=== PATIENT | male | born 1975 | race Caucasian/White ===

== ENCOUNTER 2018-01-27 05:43 | Inpatient (IN) ==
[2018-01-20 11:28] LABS: Basophils % 0.5 % (0.0-0.8); Eosinophils # 0.3 10*3/uL (0.0-0.87); Eosinophils % 3.4 % (0.00-10.9); Hematocrit 45.1 VOL% (42.0-52.0); Hemoglobin 14.6 GM/DL (14.0-18.0); Immature Granulocytes % 0.4 %; Immature Granulocytes Absolute 0.03 #; Lymphocytes # 1.7 10*3/uL (1.4-4.0); Lymphocytes % 21.3 % (21.2-54.2); Mean Corpuscular HGB Conc 32.4 GM/DL (32-36); Mean Corpuscular Hemoglobin 28 PG (27-34); Mean Corpuscular Volume 84.9 FL (87-102); Mean Platelet Volume 8.7 FL (9.6-12.0); Monocytes # 0.8 10*3/uL (0.11-0.8); Monocytes % 10.5 % (1.7-12.7); Neutrophils # 5.1 10*3/uL (1.4-7.4); Neutrophils % 63.9 % (38.7-73.9); Platelet Count 220 T/CUMM (130-400); Red Blood Count 5.31 MC/CUMM (3.8-5.5); Red Cell Distribution Width 14.5 % (9.3-17.3)
[2018-01-20 11:36] LABS: PT Patient Result 10.3 SECS; Partial Thromboplastin Time 25.2 SECS (0-40)
[2018-01-20 11:48] LABS: Apearance,Urine CLEAR (Clear); Bilirubin,Urine Negative (Negative); Blood, Urine Negative (Negative); Glucose,Urine (UA) Negative (Negative); Ketones,Urine Negative (Negative); Mucus,Urine Occasional /LPF (Occasional); Nitrite,Urine Negative (Negative); Protein,Urine Negative; RBC,Urine <1 /HPF (0-4); Squamous Epithelial Cell,Urine Occasional /HPF (0-10); Urine Color Yellow (Yellow); Urine Specific Gravity 1.017 (1.001-1.035); Urine Urobilinogen < 2.0 EU/DL (0.2-1.0); WBC,Urine <1 /HPF (0-6)
[2018-01-20 12:07] LABS: Calcium 9.3 MG/DL (8.5-10.1); Osmolality,Calculated 276.4 MOS/KG (273-304); Potassium 4.7 MMOL/L (3.5-5.1)
[2018-01-27] MEDS ORDERED: BUPIVACAINE LIPOSOMAL 20 ML/266 MG VIAL INFILTRAT ONE (06:00)
[2018-01-27] MEDS ORDERED: ACETAMINOPHEN INJ 1,000 MG in PREMIX 1 EACH IV ONE (06:00)
[2018-01-27] MEDS ORDERED: CEFUROXIME INJ 1,500 MG in SODIUM CHLORIDE 0.9% 100 ML IV ONE (06:00)
[2018-01-27] MEDS ORDERED: DIAZEPAM 5 MG TABLET ONE (06:29)
[2018-01-27] MEDS ORDERED: DIAZEPAM 5 MG TABLET PO ONE (06:30)
[2018-01-27] MEDS ORDERED: FAMOTIDINE 20 MG TABLET ONE (06:30)
[2018-01-27] MEDS ORDERED: FAMOTIDINE 20 MG TABLET PO ONE (06:30)
[2018-01-27] MEDS: LACTATED RINGERS 1,000 ML IV SCH ×4 (06:50→19:00)
[2018-01-27] MEDS ORDERED: CEFUROXIME 1,500 MG VIAL ONE (07:07)
[2018-01-27] MEDS ORDERED: ACETAMINOPHEN 1,000 MG/100 ML VIAL IV ONE (07:07)
[2018-01-27] MEDS ORDERED: TISSUE ADHESIVE 1 EACH APPLICATOR TOP ONE (07:48)
[2018-01-27] MEDS ORDERED: BUPIVACAINE LIPOSOMAL 20 ML/266 MG VIAL ONE (07:48)
[2018-01-27] MEDS ORDERED: BUPIVACAINE 0.25% 50 ML VIAL ONE (07:51)
[2018-01-27] MEDS ORDERED: LIDOCAINE 1% 50 ML VIAL ONE (07:51)
[2018-01-27] MEDS ORDERED: ONDANSETRON 4 MG/2 ML VIAL IV PRN ×2 (09:30→10:08)
[2018-01-27] MEDS: HYDROmorphone 2 MG/1 ML VIAL IV PRN ×3 (10:10→11:22)
[2018-01-27 10:13] LABS: Basophils % 0.2 % (0.0-0.8); Eosinophils # 0.3 10*3/uL (0.0-0.87); Eosinophils % 3.3 % (0.00-10.9); Hematocrit 44.9 VOL% (42.0-52.0); Hemoglobin 14.6 GM/DL (14.0-18.0); Immature Granulocytes % 0.7 %; Immature Granulocytes Absolute 0.06 #; Lymphocytes # 2.3 10*3/uL (1.4-4.0); Lymphocytes % 28.7 % (21.2-54.2); Mean Corpuscular HGB Conc 32.5 GM/DL (32-36); Mean Corpuscular Hemoglobin 28 PG (27-34); Mean Corpuscular Volume 85.4 FL (87-102); Mean Platelet Volume 8.5 FL (9.6-12.0); Monocytes # 0.6 10*3/uL (0.11-0.8); Monocytes % 6.9 % (1.7-12.7); Neutrophils # 4.9 10*3/uL (1.4-7.4); Neutrophils % 60.2 % (38.7-73.9); Platelet Count 192 T/CUMM (130-400); Red Blood Count 5.26 MC/CUMM (3.8-5.5); Red Cell Distribution Width 14.3 % (9.3-17.3); White Blood Count 8.1 T/CUMM (4-12)
[2018-01-27] MEDS ORDERED: MIDAZOLAM 2 MG/2 ML VIAL ONE (10:20)
[2018-01-27] MEDS ORDERED: DESFLURANE 1 UNIT/15 MINUTE INH ONE (10:20)
[2018-01-27] MEDS ORDERED: PROPOFOL 200 MG/20 ML VIAL IV ONE (10:20)
[2018-01-27] MEDS ORDERED: KETOROLAC 30 MG/1 ML VIAL ONE (10:20)
[2018-01-27] MEDS ORDERED: fentaNYL 100 MCG/2 ML VIAL ONE (10:20)
[2018-01-27] MEDS ORDERED: NEOSTIGMINE 10 MG/10 ML VIAL ONE (10:21)
[2018-01-27] MEDS ORDERED: ROCURONIUM 100 MG/10 ML VIAL IV ONE (10:21)
[2018-01-27] MEDS ORDERED: GLYCOPYRROLATE 0.4 MG/2 ML VIAL ONE (10:21)
[2018-01-27] MEDS ORDERED: LACTATED RINGERS 1,000 ML IV ONE (10:21)
[2018-01-27] MEDS ORDERED: PHENYLEPHRINE 1 MG/10 ML SYRINGE IV ONE (10:21)
[2018-01-27 10:28] LABS: Calcium 8.4 MG/DL (8.5-10.1); Osmolality,Calculated 276.5 MOS/KG (273-304); Potassium 4.5 MMOL/L (3.5-5.1)
[2018-01-27] MEDS: KETOROLAC 15 MG/1 ML VIAL IV SCH ×3 (11:17→20:49)
[2018-01-27 11:53] LABS: Apearance,Urine CLEAR (Clear); Bilirubin,Urine Negative (Negative); Blood, Urine Negative (Negative); Glucose,Urine (UA) Negative (Negative); Ketones,Urine Negative (Negative); Nitrite,Urine Negative (Negative); Protein,Urine Negative; RBC,Urine <1 /HPF (0-4); Urine Color Colorless (Yellow); Urine Specific Gravity 1.003 (1.001-1.035); Urine Urobilinogen < 2.0 EU/DL (0.2-1.0); WBC,Urine <1 /HPF (0-6)
[2018-01-27] MEDS ORDERED: SODIUM CHLORIDE 0.9% 1,000 ML IV ONE (13:21)
[2018-01-27] MEDS ORDERED: PNEUMOCOCCAL VACCINE (23 VALENT) 0.5 ML VIAL IM ONE (13:28)
[2018-01-27 14:10] LABS: Hematocrit 42.4 VOL% (42.0-52.0); Hemoglobin 13.7 GM/DL (14.0-18.0)
[2018-01-27] MEDS: GABAPENTIN 100 MG CAPSULE PO SCH ×2 (14:21→20:45)
[2018-01-27] MEDS: ACETAMINOPHEN INJ 1,000 MG in PREMIX 1 EACH IV SCH ×2 (15:33→20:46)
[2018-01-27] MEDS: CEFUROXIME INJ 1,500 MG in SYRINGE 1 EACH IV SCH (16:42)
[2018-01-27] MEDS: traMADol 50 MG TABLET PO PRN ×2 (20:01→23:17)
[2018-01-28] MEDS: ENOXAPARIN 40 MG/0.4 ML SYRINGE SUBCUT SCH (03:09)
[2018-01-28] MEDS: LACTATED RINGERS 1,000 ML IV SCH ×2 (03:09→16:01)
[2018-01-28] MEDS: KETOROLAC 15 MG/1 ML VIAL IV SCH ×4 (03:09→20:50)
[2018-01-28] MEDS: ACETAMINOPHEN 500 MG TABLET PO SCH ×4 (03:10→20:48)
[2018-01-28] MEDS: traMADol 50 MG TABLET PO PRN ×3 (04:20→18:13)
[2018-01-28 05:02] LABS: Basophils % 0.3 % (0.0-0.8); Eosinophils # 0.1 10*3/uL (0.0-0.87); Eosinophils % 0.8 % (0.00-10.9); Hematocrit 39.2 VOL% (42.0-52.0); Hemoglobin 12.7 GM/DL (14.0-18.0); Immature Granulocytes % 0.5 %; Immature Granulocytes Absolute 0.05 #; Lymphocytes # 1.4 10*3/uL (1.4-4.0); Lymphocytes % 12.9 % (21.2-54.2); Mean Corpuscular HGB Conc 32.4 GM/DL (32-36); Mean Corpuscular Hemoglobin 28 PG (27-34); Mean Corpuscular Volume 85.2 FL (87-102); Mean Platelet Volume 8.8 FL (9.6-12.0); Monocytes % 9.2 % (1.7-12.7); Neutrophils # 8.4 10*3/uL (1.4-7.4); Neutrophils % 76.3 % (38.7-73.9); Platelet Count 178 T/CUMM (130-400); Red Cell Distribution Width 14.3 % (9.3-17.3)
[2018-01-28 05:20] LABS: Calcium 8.1 MG/DL (8.5-10.1); Osmolality,Calculated 274.5 MOS/KG (273-304); Potassium 4.1 MMOL/L (3.5-5.1)
[2018-01-28] MEDS: CEFUROXIME INJ 1,500 MG in SYRINGE 1 EACH IV SCH (06:22)
[2018-01-28] MEDS: PANTOPRAZOLE 40 MG VIAL IV SCH (09:05)
[2018-01-28] MEDS: CELECOXIB 200 MG CAPSULE PO SCH ×2 (09:07→20:49)
[2018-01-28] MEDS: GABAPENTIN 100 MG CAPSULE PO SCH ×3 (09:08→20:48)
[2018-01-28] MEDS ORDERED: traMADol 50 MG TABLET PO PRN (09:30)
[2018-01-28] MEDS: ITRACONAZOLE 100 MG CAPSULE PO SCH (20:48)
[2018-01-29] MEDS: ACETAMINOPHEN 500 MG TABLET PO SCH ×2 (03:24→09:14)
[2018-01-29] MEDS: KETOROLAC 15 MG/1 ML VIAL IV SCH (03:24)
[2018-01-29] MEDS: ENOXAPARIN 40 MG/0.4 ML SYRINGE SUBCUT SCH (04:03)
[2018-01-29 04:43] LABS: Basophils % 0.2 % (0.0-0.8); Eosinophils # 0.3 10*3/uL (0.0-0.87); Eosinophils % 2.5 % (0.00-10.9); Hematocrit 38.2 VOL% (42.0-52.0); Hemoglobin 12.5 GM/DL (14.0-18.0); Lymphocytes # 1.5 10*3/uL (1.4-4.0); Lymphocytes % 14.2 % (21.2-54.2); Mean Corpuscular HGB Conc 32.7 GM/DL (32-36); Mean Corpuscular Hemoglobin 28 PG (27-34); Mean Platelet Volume 8.9 FL (9.6-12.0); Monocytes # 0.9 10*3/uL (0.11-0.8); Monocytes % 8.9 % (1.7-12.7); Neutrophils # 7.6 10*3/uL (1.4-7.4); Neutrophils % 73.2 % (38.7-73.9); Platelet Count 177 T/CUMM (130-400); Red Blood Count 4.44 MC/CUMM (3.8-5.5); Red Cell Distribution Width 14.2 % (9.3-17.3); White Blood Count 10.3 T/CUMM (4-12)
[2018-01-29 05:15] LABS: Osmolality,Calculated 278.3 MOS/KG (273-304)
[2018-01-29] MEDS: ITRACONAZOLE 100 MG CAPSULE PO SCH (09:14)
[2018-01-29] MEDS: GABAPENTIN 100 MG CAPSULE PO SCH (09:15)
[2018-01-29] MEDS: traMADol 50 MG TABLET PO PRN (09:15)
[2018-01-29] MEDS: PANTOPRAZOLE 40 MG VIAL IV SCH (09:15)
[2018-01-29] MEDS: CELECOXIB 200 MG CAPSULE PO SCH (09:16)
[2018-01-29 12:20] VITALS: BP 154/95
== END 2018-01-29 12:46 | disposition home or self-care (01) | DRG 165 ==
LOC: N.SDSINP 05:43 → N.ICU 10:45 → N.TELES 01-28 16:04
PROVIDERS: ADMIT Thoracic Surgery (Cardiothoracic Vascular Surgery); ATTEND Thoracic Surgery (Cardiothoracic Vascular Surgery)